=== PATIENT | female | born 1970 | race Caucasian/White ===

== ENCOUNTER 2018-01-09 06:38 | Day surgery (SDC) | payer BC, OTHER ==
[~2018-01-09] VITALS: Ht 170.2 cm; Wt 168.3 kg
--- NOTE | ~2018-01-09 | O ---
[facility] [place] [address] OPERATIVE REPORT Name: CORNELL PERAZA Room #: DEP [facility]..#: [id number] Admission: 01/09/18 Attend Phys: Aron Goins MD Discharge: 01/09/18 Date of : 70 Report #: [id number] THIS REPORT FOR: //name// CC: Rere Goins DATE OF SERVICE: 01/09/2018 PREOPERATIVE DIAGNOSIS: Left knee lateral meniscus tear. POSTOPERATIVE DIAGNOSES: 1. Left knee root tear of the posterior horn medial meniscus. 2. Loose body, left knee lateral compartment. PROCEDURES: 1. Left knee arthroscopy with partial medial meniscectomy. 2. Loose body removal, left knee. SURGEON: Aron Goins MD ANESTHESIA: LMA. TOURNIQUET TIME: 10 minutes. ESTIMATED BLOOD LOSS: Minimal. COMPLICATIONS: None. SPECIMENS: None. CONDITION UPON LEAVING THE OPERATING ROOM: Stable. INDICATIONS FOR PROCEDURE: The patient is a 47-year-old female who has had lateral-sided left knee pain. She had an MRI scan shown to have a potential lateral meniscus tear and after discussion with her, she elected for left knee arthroscopy with partial meniscectomy and debridement as needed. DESCRIPTION OF PROCEDURE: Risks, benefits, alternatives and complications were discussed in detail with the patient including but not limited to risk of anesthesia, risk of damage to nerves, arteries and blood vessels, risk for infection and bleeding, risk for continued knee pain and need for reoperation. Informed consent was obtained from the patient. Left knee was appropriately marked in the preoperative holding area. IV Ancef was given for preoperative antibiotics. She was brought to the operating room and placed in supine position on operating room table. LMA anesthesia was induced without complication. Tourniquet was placed on the left thigh. Left lower extremity [facility] [address] [place] [address] OPERATIVE REPORT Name: CORNELL PERAZA Room #: DEP [facility] Soheila#: [id number] Admission: 01/09/18 Attend Phys: Aron Goins MD Discharge: 01/09/18 Date of : 70 Report #: [id number] was prepped and draped in normal sterile fashion. Timeout was performed properly identifying the patient and procedure as well as the instrumentation. All in the operating room were in agreement. Left lower extremity was exsanguinated and tourniquet was inflated. Tourniquet time was 10 minutes. Standard anterolateral portal was established with an 11 blade through the skin. Arthroscope was introduced into the patellofemoral compartment and diagnostic arthroscopy was undertaken. Patellofemoral compartment was visualized and found to be without pathology. Medial gutter was visualized and found to be without pathology. Medial compartment was visualized and medial portal was established under arthroscopic visualization. Probe was introduced into the medial compartment and there was noted to be a root tear of the posterior horn medial meniscus. The knee was quite bloody and it was determined we had a venous tourniquet and so the tourniquet was deflated and the rest of the case was performed without tourniquet. Partial meniscectomy of the posterior horn medial meniscus was performed with an oscillating shaver. Notch was visualized and found to have an intact anterior cruciate ligament and lateral compartment was visualized and found to have a loose body in the lateral compartment just above the lateral meniscus close to the popliteal hiatus. The loose body was removed with arthroscopic grasper. The lateral meniscus was intact. Scope was placed in the lateral gutter and found to be without pathology, then placed back in the patellofemoral compartment and all fluid was allowed to drain from the knee. Knee was injected with 5 mL of 0.5% Marcaine. Incision was closed with 3-0 nylon. Soft dressing of Adaptic, 4 x 4, Webril and Cricket wrap were applied. The patient tolerated this procedure well and went to recovery room under care of anesthesia postoperatively. <ELECTRONICALLY SIGNED> By: Aron Goins MD 01/15/18 [id number] 1730 Aron Goins MD /nt
[~2018-01-09 06:38] MED LIST: ACID CONTROL20 MG PO; ASPIRIN325 PO; ATORVASTATIN CA40 MG PO; DAILY VALUE1 EAC1 PO; DIPHENHIST50 MG PO; NORTRIPTYLINE H75 M1 PO; PREVACID15 MG PO; SUMATRIPTAN SU100 MG PO; TOPAMAX 100 MG100 MG PO; TRAMADOL 50 MG50 MG PO; ULTRAM 50MG TAB50 MG PO
[2018-01-09 09:52] VITALS: BP 135/77
[2018-01-09] MEDS ORDERED: HYDROCODONE-AP1 EAC6 PO (12:11)
[2018-01-09 12:31] VITALS: BP 135/77
== END 2018-01-09 13:50 | disposition home or self-care (01) ==
LOC: OR 06:38 → TBA 06:40 → PRE 08:38 → EDSTATUS 09:14 → OR 09:22
DX: S83.242A Other tear of medial meniscus, current injury, left knee, initial encounter (principal); I10 Essential (primary) hypertension; E78.5 Hyperlipidemia, unspecified; K21.9 Gastro-esophageal reflux disease without esophagitis; Z98.890 Other specified postprocedural states; G43.909 Migraine, unspecified, not intractable, without status migrainosus; Z87.891 Personal history of nicotine dependence; Z79.899 Other long term (current) drug therapy; Z87.442 Personal history of urinary calculi; X58.XXXA Exposure to other specified factors, initial encounter; Y93.89 Activity, other specified; Y92.89 Other specified places as the place of occurrence of the external cause; Y99.8 Other external cause status
CPT/HCPCS: 50010; 50101; 50405; 51038; 54170; 56526; 62110; 62900; 70005

== ENCOUNTER 2018-07-09 15:58 | Emergency (ER) | payer BC, OTHER ==
[~2018-07-09] VITALS: Ht 170.2 cm; Wt 154.2 kg
[~2018-07-09 15:58] MED LIST changes: +HYDROCODONE-AP1 EAC6 PO
[2018-07-09 16:20] LABS: URINE CLARITY CLEAR; URINE COLOR AMBER; URINE PROTEIN (DIPSTICK) 1+ (Negative); URINE SPECIFIC GRAVITY > 1.030 (1.005-1.035)
[2018-07-09 16:21] LABS: ICTOTEST (BILI CONFIRMATORY) Negative (Negative); URINE BILIRUBIN NEGATIVE (Negative); URINE BLOOD NEGATIVE (Negative); URINE GLUCOSE-RANDOM* NEGATIVE (Negative); URINE KETONES 1+ (Negative); URINE LEUKOCYTES-REFLEX NEGATIVE (Negative); URINE NITRITE-REFLEX POSITIVE (Negative)
[2018-07-09 16:28] LABS: SQUAMOUS 4-10 Moderate /LPF (0-3)
[2018-07-09 16:28] LABS: HEMATOCRIT 41.6 % (37.0-47.0); HEMOGLOBIN 13.4 gm/dL (12.0-15.0); MCH 24.2 pg (26.0-34.0); MCHC 32.2 g/dL (28.0-37.0); MCV 75.3 fL (80.0-100.0); PLATELET COUNT 433 thou/uL (150-400); RBC 5.53 mil/uL (4.20-5.00); RDW 17.1 % (10.5-14.5); WBC 14.7 thou/uL (4.0-11.0)
[2018-07-09 16:29] LABS: CALCIUM OXALATE >10 Many /LPF (None Seen); CASTS None Seen /LPF (None Seen); URINE RBC None Seen /HPF (0-2); URINE WBC-REFLEX None Seen /HPF (0-5)
[2018-07-09 16:37] LABS: CALCIUM 9.8 mg/dL (8.5-10.1); CREATININE 1.2 mg/dL (0.6-1.0); POTASSIUM 3.8 mmol/L (3.5-5.1)
[2018-07-09 16:43] LABS: TOTAL BILIRUBIN 0.5 mg/dL (<0.1-1.0)
[2018-07-09 16:46] LABS: ABSOLUTE NEUTROPHILS 12.2 thou/uL (1.4-8.2); ANISOCYTOSIS 1+; ATYPICAL LYMPHS 1 %
[2018-07-09] MEDS ORDERED: BENTYL 20 MG TA20 M1 PO (19:05)
[2018-07-09] MEDS ORDERED: ZOFRAN ODT4 MG PO (19:05)
[2018-07-09] MEDS ORDERED: LOPERAMIDE 2 MG2 M1 PO (19:05)
[2018-07-09 19:40] VITALS: BP 156/87
== END 2018-07-09 19:43 | disposition home or self-care (01) ==
LOC: ER 15:58
PROVIDERS: Physician Assistant
DX: R10.30 Lower abdominal pain, unspecified (principal); R11.2 Nausea with vomiting, unspecified; R19.7 Diarrhea, unspecified; E78.5 Hyperlipidemia, unspecified; G43.909 Migraine, unspecified, not intractable, without status migrainosus; K21.9 Gastro-esophageal reflux disease without esophagitis; Z87.891 Personal history of nicotine dependence; Z88.8 Allergy status to other drugs, medicaments and biological substances; Z88.2 Allergy status to sulfonamides; Z87.442 Personal history of urinary calculi; Z90.49 Acquired absence of other specified parts of digestive tract